=== PATIENT | male | born 1995 | race Caucasian/White ===

== ENCOUNTER 2016-07-07 17:59 | Emergency (ER) | payer BC ==
[2016-07-07 18:11] VITALS: BP 120/73
--- OUTSIDE RECORDS SUMMARY | 2016-07-07 18:46 | XMS REPORT | Continuity of Care Document ---
:1995 Author Organization [facility] ([facility]) Address [address] [place] [address] Phone [phone] Care Team Providers Name Role Phone Martin Bill Primary Care Provider [phone] Source Comments This disclosure is being made pursuant to the Care Everywhere program, applicable federal and state laws, and may not contain all informaitonavailable regarding this patient.[facility] ([facility]) Active Allergies and Adverse Reactions No Known Allergies Current Medications No known medications Active Problems Problem Noted Date Acute myopericarditis 11/13/2013 Resolved Problems Problem Noted Date Resolved Date Chest pain radiating to arm 11/13/2013 11/15/2013 Social History Tobacco Use Types Packs/Day Years Used Date Current Every Day Smoker Cigarettes 0.5 Alcohol Use Drinks/Week oz/Week Comments No Last Filed Vital Signs Vital Sign Reading Time Taken Blood Pressure 136/65 02/02/2014 8:47 AM HEALTHCARE REPRESENTATIVE Pulse 88 02/02/2014 8:47 AM HEALTHCARE REPRESENTATIVE Temperature 36.4 C (97.5 F) 11/15/2013 7:30 AM CDT Respiratory Rate 16 11/15/2013 7:30 AM CDT Height 1.753 m (5' 9") 11/13/2013 12:23 PM CDT Weight 74.3 kg (163 lb 12.8 oz) 02/02/2014 8:47 AM HEALTHCARE REPRESENTATIVE Body Mass Index 24.18 02/02/2014 8:47 AM HEALTHCARE REPRESENTATIVE Oxygen Saturation 100% 11/15/2013 7:30 AM CDT Plan of Care Health Maintenance Due Date Last Done Comments Hepatitis B Vaccine (1 of 3 - Primary Series) 1993 HPV Vaccine (1 of 3 - Male 3 Dose Series) 2004 Tdap Vaccine 2004 MMR Vaccine 2011 Td Vaccine 2011 Varicella Vaccine (1 of 2 - Adult - No Evidence of 2011 Immunity) Pneumococcal Vaccine (1 of 1 - PPSV23) 2012 Influenza Vaccine: Seasonal (#1) 10/29/2015 Lipid Disorder Screening 11/13/2018 11/13/2013 Results from Last 3 Months Not on file
[2016-07-07] MEDS ORDERED: predniSONE 20 MG TABLET PO ONE (18:48)
--- NOTE | 2016-07-07 18:49 | ERNOTE ---
ENT HPI Presenting Symptoms: other - sore throat Time Seen by Provider: 07/07/16 18:20 Source: patient - Immun/Allergies/Home Medications Immunizations: IMMUNIZATION HX Immunizations Up to Date Yes History of Influenza Vaccine Yes Allergies/Adverse Reactions: Allergies Allergy/AdvReac Type Severity Reaction Status Date / Time No Known Allergies Allergy Verified 11/12/13 23:39 Home Medications: HOME MEDICATIONS Azithromycin [Zithromax] 250 mg PO DAILY #6 tablet 07/07/16 [Last Taken Unknown] - History of Present Illness Narrative: Patient presents with sore throat over the last 48 hours. Describes the pain as somewhat burning and moderate in intensity. Severity: Present: moderate ENT Location: Present: throat Prearrival Treatment: Present: no prearrival treatment Associated Symptoms - ENT: Reports: denies symptoms Review of Systems - Review of Systems Constitutional: Present: See HPI EYE: Present: no symptoms reported ENT: Present: sore throat Respiratory: Present: no symptoms reported Cardiology: Present: no symptoms reported Gastrointestinal/Abdominal: Present: no symptoms reported Genitourinary: Present: no symptoms reported Musculoskeletal: Present: no symptoms reported Skin: Present: no symptoms reported Neurological: Present: no symptoms reported Endocrine: Present: no symptoms reported Hematologic/Lymphatic: Present: no symptoms reported Psych: Present: no symptoms reported - Patient's Past Medical History Patient History - Medical: No pertinent hx Patient History - Cardiac/Respiratory: Other Patient History - Cancer: No Hx of Cancer Patient History - Surgical Procedures: No surgical history Patient History - Other: AIDS - Social History Living Situations: spouse Abuse History: No History of abuse Psych History: No pertinent hx Smoking Status: Current every day smoker Alcohol Use: occasionally Drug Use: none - Immunizations Immunizations Up to Date: Yes History of Influenza Vaccine: Yes Physical Exam - Physical Exam General Appearance: Present: wd/wn, alert, moderate distress Eye Exam: Normal inspection: bilateral, PERRL: bilateral Ears, Nose, Throat: Present: pharyngeal erythema Neck: Present: normal inspection, nontender Respiratory: Present: no respiratory distress, normal breath sounds, no accessory muscle use, chest nontender, lungs clear Cardiovascular/Chest: Present: regular rate, rhythm, no murmur, normal peripheral pulses Gastrointestinal/Abdominal: Present: normal bowel sounds, nontender, nondistended, soft, no organomegaly Rectal Exam: Present: deferred Back Exam: Present: normal inspection, normal range of motion Extremity Exam: Present: normal inspection, non-tender, no edema, normal range of motion Neurological Exam: Present: alert, oriented, normal mood/affect Skin Exam: Present: normal color, warm/dry Lymphatic Exam: Present: no adenopathy ED Progress - Results and Orders Patient's Lab Results:: I have reviewed the patient's lab results. - Vital Signs Patient's Vital Signs:: I have reviewed the patient's vital signs. Vital Signs: Vital Signs 07/07/16 18:03 Temperature 37.2 C Pulse Rate 80 Respiratory 16 Rate Blood Pressure 120/73 - Progress/Reassessment Chief Complaint: Sore Throat Progress:: Unchanged Plan - Plan Plan: Patient be given a dose of prednisone here to help lessen the erythema and the pain is throat and started on a five-day course of azithromycin. Departure Clinical Impression: Acute pharyngitis Qualifiers: Pharyngitis/tonsillitis etiology: unspecified etiology Qualified Code(s): J02.9 - Acute pharyngitis, unspecified - Departure Disposition: Home self-care Instructions: Pharyngitis, [id number] Referrals: Martin Bill DO [Primary Care Provider] - Prescriptions: Azithromycin [Zithromax] 250 mg PO DAILY #6 tablet
[2016-07-07] MEDS ORDERED: predniSONE 20 MG TABLET ONE (18:51)
== END 2016-07-07 18:57 | disposition home or self-care (01) ==
LOC: ER 17:59
DX: J02.9 Acute pharyngitis, unspecified (principal); F17.210 Nicotine dependence, cigarettes, uncomplicated